=== PATIENT | female | born 1990 | race Caucasian/White ===

== ENCOUNTER 2020-05-20 07:54 | Outpatient (CLI) | payer BC | END 2020-05-20 07:55 | disposition home or self-care (01) | LOC: CSHULT 07:54 | PROVIDERS: ATTEND Nurse Practitioner Family | DX: R10.13 Epigastric pain (principal); K80.20 Calculus of gallbladder without cholecystitis without obstruction | CPT/HCPCS: 76705 ==

== ENCOUNTER 2021-01-02 21:51 | Day surgery (SDC) | payer BC, OTHER ==
[2021-01-02] MEDS ORDERED: hydrALAZINE 20 MG/ML VIAL SLOW IVP PRN (22:50)
== END 2021-01-02 23:11 | disposition home or self-care (01) ==
LOC: CSHLD/OP 21:51
PROVIDERS: ATTEND Obstetrics & Gynecology
DX: O99.891 Other specified diseases and conditions complicating pregnancy (principal); N93.0 Postcoital and contact bleeding; O34.219 Maternal care for unspecified type scar from previous cesarean delivery; Z3A.29 29 weeks gestation of pregnancy; Z88.0 Allergy status to penicillin
CPT/HCPCS: 99282

== ENCOUNTER 2021-02-09 07:38 | Day surgery (SDC) | payer OTHER ==
[2021-02-09 08:17] VITALS: BMI 35.4
[2021-02-09] MEDS ORDERED: hydrALAZINE 20 MG/ML VIAL SLOW IVP PRN (09:37)
== END 2021-02-09 11:05 | disposition home or self-care (01) ==
LOC: CSHLD/OP 07:38
PROVIDERS: ATTEND Obstetrics & Gynecology
DX: O36.8130 Decreased fetal movements, third trimester, not applicable or unspecified (principal); O34.219 Maternal care for unspecified type scar from previous cesarean delivery; Z3A.35 35 weeks gestation of pregnancy; Z79.899 Other long term (current) drug therapy; Z88.0 Allergy status to penicillin
CPT/HCPCS: 76819; 99282

== ENCOUNTER 2021-02-24 01:06 | Day surgery (SDC) | payer OTHER ==
[2021-02-24 01:44] VITALS: BMI 35.4
[2021-02-24 01:48] LABS: Fetal Membranes Rupture No Membranes Rupture (No Rupture)
[2021-02-24] MEDS ORDERED: hydrALAZINE 20 MG/ML VIAL SLOW IVP PRN (02:32)
== END 2021-02-24 03:40 | disposition home or self-care (01) ==
LOC: CSHLD/OP 01:06
PROVIDERS: ATTEND Obstetrics & Gynecology
DX: O99.891 Other specified diseases and conditions complicating pregnancy (principal); N89.8 Other specified noninflammatory disorders of vagina; O34.211 Maternal care for low transverse scar from previous cesarean delivery; Z3A.37 37 weeks gestation of pregnancy; Z79.899 Other long term (current) drug therapy; Z88.0 Allergy status to penicillin
CPT/HCPCS: 84112; 87480; 87510; 87660; 99285

== ENCOUNTER 2021-02-26 15:58 | Day surgery (SDC) | payer OTHER ==
[2021-02-26 16:20] VITALS: BMI 35.6
[2021-02-26] MEDS ORDERED: hydrALAZINE 20 MG/ML VIAL SLOW IVP PRN (16:37)
== END 2021-02-26 18:15 | disposition home or self-care (01) ==
LOC: CSHLD/OP 15:58
PROVIDERS: ATTEND Obstetrics & Gynecology
DX: O36.8130 Decreased fetal movements, third trimester, not applicable or unspecified (principal); O34.219 Maternal care for unspecified type scar from previous cesarean delivery; Z3A.37 37 weeks gestation of pregnancy; Z79.899 Other long term (current) drug therapy; Z88.0 Allergy status to penicillin
CPT/HCPCS: 76815; 99282

== ENCOUNTER 2021-03-03 10:14 | Day surgery (SDC) | payer OTHER | END 2021-03-03 13:30 | disposition home health service (06) | LOC: CSHLD/OP 10:14 | PROVIDERS: ATTEND Obstetrics & Gynecology | DX: O36.8130 Decreased fetal movements, third trimester, not applicable or unspecified (principal); Z3A.37 37 weeks gestation of pregnancy | CPT/HCPCS: 76816; 76819 ==

== ENCOUNTER 2021-03-05 09:55 | Inpatient (IN) | payer OTHER ==
[~2021-03-05 09:55] MED LIST: Bicitra 30 ML UDCUP PO PRN; Famotidine/PF 20 mg/2ml Vial SLOW IVP PRN; Lactated Ringer's 1,000 ML IV SCH; Ondansetron PF 4 MG/2 ML Vial IVP PRN; Promethazine HCl 25 MG/ML VIAL IM PRN; hydrALAZINE 20 MG/ML VIAL SLOW IVP PRN
[2021-03-05 10:35] VITALS: BMI 35.6
[2021-03-05] MEDS ORDERED: ceFAZolin 2 GM/Dextrose 50 ML 2 GM in Premix Bag 1 BAG IVPB SCH (10:45)
[2021-03-05 11:40] LABS: Hemoglobin 11.1 g/dL (12.0-15.5); Mean Corpuscular HGB CONC 32.6 g/dL (32.0-36.0); Mean Corpuscular Hemoglobin 30.8 pg (27.0-33.0); Mean Corpuscular Volume 94.7 fl (81.6-98.3); Platelet Count 204 10x3/uL (150-450); RBC Distribution Width 13.5 % (11.5-14.5); White Blood Cell (WBC) Count 11.1 10x3/uL (3.5-10.5)
[2021-03-05] MEDS ORDERED: Dexamethasone 4 mg/ml Vial ONE (11:49)
[2021-03-05] MEDS ORDERED: Metoclopramide HCl 10 MG/2 ML VIAL ONE (11:49)
[2021-03-05] MEDS ORDERED: Oxytocin 10 UNITS/ML VIAL ONE ×2 (11:49→13:00)
[2021-03-05] MEDS ORDERED: Ondansetron PF 4 MG/2 ML Vial ONE (11:49)
[2021-03-05] MEDS ORDERED: Morphine PF 10 MG/10 ML VIAL ONE (11:49)
[2021-03-05] MEDS ORDERED: Phenylephrine 10 MG/ML VIAL ONE (11:49)
[2021-03-05] MEDS ORDERED: Ketorolac Tromethamine 30 MG/ML VIAL ONE (11:50)
[2021-03-05 12:22] LABS: Hep B Surf Ag Non-Reactive S/CO (NonReactive)
[2021-03-05 12:23] LABS: Syphilis Antibody Nonreactive (Nonreactive); Syphilis Antibody Index 0.04 S/CO (<1.00 Non-Reactive)
[2021-03-05 12:26] LABS: HBSAg Index 0.18 S/CO (0-0.99)
[2021-03-05] MEDS ORDERED: ePHEDrine Sulfate 50 MG/10 ML VIAL ONE (12:39)
[2021-03-05] MEDS ORDERED: diphenhydrAMINE 50 MG/ML VIAL ONE (12:49)
[2021-03-05] MEDS ORDERED: Promethazine HCl 25 MG/ML VIAL IM PRN ×2 (13:46→16:43)
[2021-03-05] MEDS ORDERED: Ondansetron HCl/PF 4 MG/2 ML Vial IVP PRN (13:46)
[2021-03-05] MEDS ORDERED: Hydrocerin (Eucerin) Cream 120 gm Jar TOP PRN (13:46)
[2021-03-05] MEDS ORDERED: Fentanyl 100 MCG/2 ML VIAL SLOW IVP PRN (13:46)
[2021-03-05] MEDS ORDERED: Naloxone HCl 0.4 mg/ml Vial IV PRN (13:46)
[2021-03-05] MEDS ORDERED: diphenhydrAMINE 50 MG/ML VIAL IVP PRN (13:46)
[2021-03-05] MEDS ORDERED: Meperidine HCl/PF 25 MG/ML VIAL SLOW IVP PRN (13:46)
[2021-03-05] MEDS ORDERED: Ondansetron PF 4 MG/2 ML Vial IVP PRN ×2 (13:46→16:43)
[2021-03-05] MEDS ORDERED: Promethazine HCl 25 MG SUPP PR PRN (13:46)
[2021-03-05] MEDS ORDERED: Naloxone HCl 0.4 mg/ml Vial IVP PRN ×2 (13:46)
[2021-03-05] MEDS ORDERED: Communication Order-Pharmacy FS SCH (14:00)
[2021-03-05] MEDS ORDERED: Ketorolac Tromethamine 30 MG/ML VIAL IVP SCH (14:00)
[2021-03-05] MEDS ORDERED: Misoprostol 200 MCG TAB PR PRN (16:43)
[2021-03-05] MEDS ORDERED: Methylergonovine 0.2 MG/ML VIAL IM PRN (16:43)
[2021-03-05] MEDS ORDERED: Measles/Mumps/Rubella 10 MCG/0.5 ML VIAL SC ONE (16:43)
[2021-03-05] MEDS ORDERED: Bisacodyl 10 MG SUPP PR PRN (16:43)
[2021-03-05] MEDS ORDERED: Simethicone Chewable 80 MG TAB PO PRN (16:43)
[2021-03-05] MEDS ORDERED: Lanolin Ointment 7 GM TUBE TOP PRN (16:43)
[2021-03-05] MEDS ORDERED: Boostrix 0.5 ML (Tdap) VIAL IM ONE (16:43)
[2021-03-05] MEDS ORDERED: Acetaminophen 325 MG TAB PO PRN (16:43)
[2021-03-05] MEDS ORDERED: diphenhydrAMINE 25 MG CAP PO PRN (16:43)
[2021-03-05] MEDS ORDERED: NS w/ Oxytocin 30 units 500 ML IV SCH (16:43)
[2021-03-05] MEDS ORDERED: hydrALAZINE 20 MG/ML VIAL SLOW IVP PRN (16:43)
[2021-03-05] MEDS ORDERED: Varicella virus, LIVE 0.5 ML VIAL SC ONE (16:43)
[2021-03-05] MEDS: Ketorolac Tromethamine 30 MG/ML VIAL IVP PRN (17:45)
[2021-03-05] MEDS: Docusate 100 MG CAP PO SCH (21:33)
[2021-03-06] MEDS ORDERED: Zolpidem Tartrate 5 MG TAB PO PRN (02:00)
[2021-03-06] MEDS ORDERED: HYDROcodone/Acetaminophen 5/325 mg Tablet PO PRN (02:00)
[2021-03-06] MEDS: Ferrous Sulfate 325 MG TAB PO SCH ×3 (03:20→21:35)
[2021-03-06 05:02] LABS: Hemoglobin 9.2 g/dL (12.0-15.5); Mean Corpuscular HGB CONC 31.9 g/dL (32.0-36.0); Mean Corpuscular Hemoglobin 30.6 pg (27.0-33.0); Mean Corpuscular Volume 95.7 fl (81.6-98.3); Platelet Count 164 10x3/uL (150-450); RBC Distribution Width 13.2 % (11.5-14.5); Red Blood Cell (RBC) Count 3.01 10x6/uL (3.90-5.03); White Blood Cell (WBC) Count 14.1 10x3/uL (3.5-10.5)
[2021-03-06] MEDS: Ketorolac Tromethamine 30 MG/ML VIAL IVP PRN (08:37)
[2021-03-06] MEDS: Docusate 100 MG CAP PO SCH ×2 (08:37→21:37)
[2021-03-06] MEDS: Prenatal Vitamin 1 TAB PO SCH (08:37)
[2021-03-06] MEDS: HYDROcodone/Acetaminophen 5/325 mg Tablet PO PRN ×3 (11:37→23:21)
[2021-03-06] MEDS: Ibuprofen 800 MG TAB PO SCH ×2 (14:06→21:35)
[2021-03-07] MEDS: Ibuprofen 800 MG TAB PO SCH ×3 (05:00→21:08)
[2021-03-07] MEDS: Prenatal Vitamin 1 TAB PO SCH (08:07)
[2021-03-07] MEDS: Ferrous Sulfate 325 MG TAB PO SCH ×2 (08:07→21:07)
[2021-03-07] MEDS: HYDROcodone/Acetaminophen 5/325 mg Tablet PO PRN ×3 (08:07→18:00)
[2021-03-07] MEDS: Docusate 100 MG CAP PO SCH ×2 (08:13→21:07)
[2021-03-08] MEDS: Ibuprofen 800 MG TAB PO SCH (06:10)
[2021-03-08] MEDS: Docusate 100 MG CAP PO SCH (08:41)
[2021-03-08] MEDS: Ferrous Sulfate 325 MG TAB PO SCH (08:41)
[2021-03-08] MEDS: Prenatal Vitamin 1 TAB PO SCH (08:41)
[2021-03-08 08:46] VITALS: BP 113/66; TEMP 97.5
== END 2021-03-08 10:55 | disposition home or self-care (01) | DRG 787 ==
LOC: CSHLD 09:55 → CSHPED 16:15
PROVIDERS: ADMIT Obstetrics & Gynecology; ATTEND Obstetrics & Gynecology
PROC: 10D00Z1 Extraction of Products of Conception, Low, Open Approach (ICD-10-PCS; principal; 2021-03-05)
DX: O34.211 Maternal care for low transverse scar from previous cesarean delivery (principal); O41.03X0 Oligohydramnios, third trimester, not applicable or unspecified; Z3A.38 38 weeks gestation of pregnancy; Z37.0 Single live birth; O36.8130 Decreased fetal movements, third trimester, not applicable or unspecified; Z86.16 Personal history of COVID-19
CPT/HCPCS: 36415; 51702; 85027; 86780; 86850; 86900; 86901; 87340; J1100; J1200; J1885; J2274; J2370; J2405; J2590; J2765

== ENCOUNTER 2021-12-09 09:36 | Emergency (ER) | payer BC, OTHER | END 2021-12-09 11:40 | disposition home or self-care (01) | LOC: CSHERS 09:36 | DX: H10.9 Unspecified conjunctivitis (principal) | CPT/HCPCS: 99282 ==